=== PATIENT | female | born 1970 | race American Indian/Alaskan Native ===

== ENCOUNTER 2019-12-30 23:00 | Emergency (ER) | payer SELFPAY ==
--- NOTE | 2019-12-30 23:35 | Emergency Department Report ---
HPI - General Chief Complaint: Dyspnea/Respdistress Time Seen by Provider: 12/30/19 23:28 - HPI HPI: 49-year-old female presents to the emergency department with a complaint of shortness of breath that started about 1-2 hours prior to presentation. She d enies any chest pain, back pain, lower externally swelling, fever, cough. She has not taken anything for her symptoms prior to presentation. She denies any tobacco or illicit drug use. No recent travel, recent surgery, immobility. She has a past medical history of hypertension. No primary care physician. ED Past Medical Hx - Past Medical History Previous Medical History?: Yes Hx Hypertension: Yes - Surgical History Past Surgical History?: No - Social History Smoking Status: Never Smoker - Medications Home Medications: Home Medications Medication Instructions Recorded Confirmed Last Taken Type Albuterol INH(or & Nicu Only) 2 puff IH QID PRN #1 inh 12/31/19 Unknown Rx [ProAir HFA Inhaler] ED Review of Systems ROS: Stated complaint: CRYSTAL Other details as noted in HPI Comment: All other systems reviewed and negative Constitutional: denies: chills, fever Eyes: denies: eye pain, vision change ENT: denies: ear pain Respiratory: shortness of breath. denies: cough Cardiovascular: denies: chest pain, edema Gastrointestinal: denies: abdominal pain, vomiting Genitourinary: denies: dysuria, discharge Musculoskeletal: denies: back pain, arthralgia Skin: denies: rash, lesions Neurological: denies: headache, weakness Physical Exam - Physical Exam Vital Signs: Vital Signs 12/30/19 23:12 Temperature 98.5 F Pulse Rate 70 Respiratory 18 Rate Blood Pressure 163/98 [Left] O2 Sat by Pulse 99 Oximetry Physical Exam: GENERAL: The patient is well-developed well-nourished. HEENT: Normocephalic. Atraumatic. Patient has moist mucous membranes. EYES: Extraocular motions are intact. NECK: Supple. Trachea is midline. CHEST/LUNGS: Clear to auscultation. No tachypnea or accessory muscle use. No cough heard during examination. There is no respiratory distress noted. HEART/CARDIOVASCULAR: Regular. There is no tachycardia. There is no murmur. ABDOMEN: Abdomen is soft, nontender. Patient has normal bowel sounds. There is no abdominal distention. SKIN:Skin is warm and dry. . NEURO: The patient is awake, alert, and oriented. The patient is cooperative. The patient has no focal neurologic deficits. Normal speech. MUSCULOSKELETAL: There is no tenderness or deformity. There is no evidence of acute injury. ED Course Vital Signs 12/30/19 23:12 Temperature 98.5 F Pulse Rate 70 Respiratory 18 Rate Blood Pressure 163/98 [Left] O2 Sat by Pulse 99 Oximetry - Reevaluation(s) Reevaluation #1: Wells' Criteria for Pulmonary Embolism f RESULT SUMMARY: 0.0 points Low risk group: 1.3% chance of PE in an ED population. Another study assigned scores ? 4 as PE Unlikely and had a 3% incidence of PE. INPUTS: Clinical signs and symptoms of DVT > 0 = No PE is #1 diagnosis OR equally likely > 0 = No Heart rate > 100 > 0 = No Immobilization at least 3 days OR surgery in the previous 4 weeks > 0 = No Previous, objectively diagnosed PE or DVT > 0 = No Hemoptysis > 0 = No Malignancy w/ treatment within 6 months or palliative > 0 = No ED Medical Decision Making - Lab Data Result diagrams: 12/30/19 23:39 12/30/19 23:39 - EKG Data -: EKG Interpreted by Me EKG shows normal: sinus rhythm, axis, intervals, QRS complexes, ST-T waves Rate: normal - EKG Data When compared to previous EKG there are: previous EKG unavailable Interpretation: normal EKG - Radiology Data Radiology results: image reviewed interpreted by me: Chest x-ray does not show any pleural effusions, pneumonia, pneumothorax, focal consolidation, or any other acute process. - Medical Decision Making This patient presents to the emergency department with a complaint of shortness of breath that started a few hours prior to presentation. On examination she has normal sounding heart and lungs to auscultation. There is no tachypnea, accessory muscle use, coughing, signs of respiratory or acute distress. EKG was done that does not show any signs of ST elevation AL. Chest x-ray does not show any pleural effusions, pneumonia, pneumothorax, focal consolidation, or any other acute process. Patient's labs have been unremarkable including CBC, metabolic panel, BNP and troponin. She was given a breathing treatment and upon reevaluation says she is feeling improved. The patient was seen ambulatory multiple times within the emergency department and appears stable and there was no increased work of breathing. The patient is low on the well's criteria. Vital signs have been stable without any tachycardia, hypoxia or fever. She does not have any risk factors for thromboembolic disease. The patient will be discharged home to follow up with primary care. She has been given a prescription for an albuterol inhaler. She will return to the ER with any worsening of her symptoms or with any acute distress. - Differential Diagnosis pneumonia, CHF, asthma, bronchitis, dysrhythmia Critical Care Time: No Critical care attestation.: If time is entered above; I have spent that time in minutes in the direct care of this critically ill patient, excluding procedure time. ED Disposition Clinical Impression: Shortness of breath Disposition: TO HOME OR SELFCARE Is pt being admited?: No Condition: Stable Instructions: Dyspnea (ED) Additional Instructions: Please follow up with a primary care physician in the next few days. Return to the emergency department with any return of your shortness of breath, development of chest pain, worsening of your symptoms, or with any acute distress. Prescriptions: Albuterol INH(or & Nicu Only) [ProAir HFA Inhaler] 2 puff IH QID PRN #1 inh PRN Reason: Shortness Of Breath Referrals: PRIMARY CAREMD [Primary Care Provider] - 2-3 Days MAT JOHNSON MD [Staff Physician] - 2-3 Days KATIANA WOODS MD [Staff Physician] - 2-3 Days [facility] [Outside] - 2-3 Days Time of Disposition: 01:50
--- NOTE | 2019-12-30 23:43 | XRay Report ---
CHEST 2 VIEWS INDICATION: Difficulty breathing for the past 2 hours. COMPARISON: None FINDINGS: Support devices: None. Heart: Within normal limits. Lungs/pleura: No acute air space or interstitial disease. No pneumothorax. Additional findings: None. IMPRESSION: 1. No acute findings. Signer Name: David Cobos MD Signed: 12/30/2019 11:38 PM Workstation Name: [id number]
[2019-12-30 23:55] LABS: Basophils % (Auto) 0.6 % (0.0-1.8); Eosinophils # (Auto) 0.1 K/mm3 (0.0-0.4); Eosinophils % (Auto) 1.5 % (0.0-4.3); Hematocrit 36.8 % (30.3-42.9); Hemoglobin 12.7 gm/dl (10.1-14.3); Lymphocytes # (Auto) 2.8 K/mm3 (1.2-5.4); Mean Corpuscular HGB Conc 34 % (30-34); Mean Corpuscular Volume 81 fl (79-97); Monocytes # (Auto) 0.7 K/mm3 (0.0-0.8); Monocytes % (Auto) 11.3 % (0.0-7.3); Platelet Count 206 K/mm3 (140-440); Red Blood Count 4.53 M/mm3 (3.65-5.03); Red Cell Distribution Width 13.8 % (13.2-15.2)
[2019-12-30] MEDS ORDERED: IPRATROPIUM/ALBUTEROL SULFATE 3 ML AMPUL.NEB IH ONE (23:59)
[2019-12-31 00:08] LABS: BUN/Creatinine Ratio 18; Blood Urea Nitrogen 20 mg/dL (7-17); Calcium 10.2 mg/dL (8.4-10.2); Hemolysis Index 7
[2019-12-31 01:18] VITALS: BP 140/95
== END 2019-12-31 02:15 | disposition home or self-care (01) ==
LOC: ED 23:00
DX: R06.02 Shortness of breath (principal)
CPT/HCPCS: 36415; 71046; 80048; 83880; 84484; 85025; 93005; 93010; 94640; 94644